=== PATIENT | male | born 1985 | race Caucasian/White ===

== ENCOUNTER 2023-12-28 22:10 | Emergency (ER) | payer MEDICAID, SELFPAY ==
[2023-12-28 22:15] VITALS: BP 121/79; PULSE 91; RESP 20; TEMP 36.7; O2SAT 99; BMI 19.6
--- NOTE | 2023-12-28 22:40 | ED_ITS ---
HPI - Dental/Oral General Chief complaint: Dental/Oral/Mouth Injury/Pain Stated complaint: abscess tooth- R Bottom Time Seen by Provider: 12/28/23 22:19 History of Present Illness HPI Narrative: This 38-year-old male comes in with dental pain in the right lower row. He has very poor dentition and has had some dentures in the upper row and needs to have his lower row of teeth replaced with dentures. He complains of pain in the right lower row where he has fractured teeth. There is no report of fever or purulent drainage. He states that he is getting [place] insurance and connecting with the primary doctor and then plans to get connected with a dentist. Related Data Home Medications ?Medication ?Instructions ?Recorded ?Confirmed paroxetine HCl 10 mg tablet 10 mg PO DAILY 12/28/23 12/28/23 paroxetine HCl 40 mg tablet 40 mg PO DAILY 12/28/23 12/28/23 Allergies Allergy/AdvReac Type Severity Reaction Status Date / Time amoxicillin Allergy Mild Hives Verified 12/28/23 22:18 clindamycin Allergy Mild Hives Verified 12/28/23 22:18 Review of Systems Status of ROS: Reports: 10 or more systems reviewed and unremarkable except as noted in History and below Narrative: Constitutional: No fevers, no weight gain or loss. Eyes: No discharge. No vision changes. HENT: No congestion, no sore throat, no ear pain. Severe dental pain as described above. Cardiovascular: No chest pain, no palpitations. Respiratory: No shortness of breath, no wheezes, no cough. Gastrointestinal: No abdominal pain, no vomiting, no diarrhea. Genitourinary: No dysuria, no hematuria. Musculoskeletal: Normal range of motion. Skin: No rashes, no pruritis. Neurological: No dizziness, weakness, sensory change, speech change. Endo/Heme/Allergies: No bruising or bleeding. No polydipsia. Pysch: no suicidality, no anxiety, no insomnia. All other systems reviewed and are negative. [facility] Medical History (Updated 12/28/23 @ 22:48 by Cosmo Orantes MD) Anxiety ?F41.9 - Anxiety disorder, unspecified (ICD-10) Social History Smoking Status: Current every day smoker What tobacco products do you use: ciga rettes Second hand tobacco smoke exposure: Yes How often do you have a drink containing alcohol: never AUDIT-C Alcohol total score: 0 Non-prescribed substance use: marijuana (any form) Exam Narrative: Exam Narrative: Constitutional: Well-developed, well-nourished, no acute distress. HEENT: Normocephalic, atraumatic. Very poor dentition. Some fractured teeth that are stubs and black appearing in the right lower row where he has distinct tenderness. No sign of external abscess or swelling. Neck: Normal range of motion. Nontender. Supple. Heart: Regular. No murmurs. Normal rate. Intact distal pulses. Lungs: Clear to auscultation. No chest discomfort. No wheezes, rhonchi, or rales. Abdomen: Normal bowel sounds. Nontender. No rebound tenderness. Genitalia: Deferred. Back: No midline tenderness. Normal range of motion. Extremities: Normal range of motion. No injury. Skin: Intact. No rash. Warm. No erythema or pallor. Neurologic: No altered sensation. No weakness. Alert and oriented. Psychiatric: No suicidality. No anxiety or depression. No insomnia. Nursing notes and vitals signs are reviewed. Const: Vital Signs, click to edit/add: Vital Signs - 24 hr 12/28/23 22:15 Temperature 98.0 F Pulse Rate [Right Pulse Oximeter] 91 Respiratory Rate 20 Blood Pressure [Ri ght Upper Arm] 121/79 Pulse Oximetry 99 Oxygen Delivery Me thod Room Air Course Vital Signs Vital signs: Initial Vital Signs Temperature 98.0 F 12/28/23 22:15 Temperature Source Temporal Artery Scan 12/28/23 22:15 Pulse Rate 91 12/28/23 22:15 Respiratory Rate 20 12/28/23 22:15 Blood Pressure 121/79 12/28/23 22:15 Blood Pressure Mean 93 12/28/23 22:15 Blood Pressure Position Sitting 12/28/23 22:15 Pulse Oximetry 99 12/28/23 22:15 Oxygen Delivery Method Room Air 12/28/23 22:15 Vital Signs Temperature 98.0 F 12/28/23 22:15 Pulse Rate 91 12/28/23 22:15 Respiratory Rate 20 12/28/23 22:15 Blood Pressure 121/79 12/28/23 22:15 Pulse Oximetry 99 12/28/23 22:15 Oxygen Delivery Method Room Air 12/28/23 22:15 Temperature 98.0 F 12/28/23 22:15 Pulse Rate 91 12/28/23 22:15 Respiratory Rate 20 12/28/23 22:15 Blood Pressure 121/79 12/28/23 22:15 Pulse Oximetry 99 12/28/23 22:15 Oxygen Delivery Method Room Air 12/28/23 22:15 MDM - Dental/Oral MDM Narrative Medical decision making narrative: This patient has very poor dentition with chronic dental pain that is worsened recently. He is very appreciative for what ever help I can provide here and understands that more definitive care will need to happen in a dentist office. The patient is agreeable to receive an an injection to block the inferior alveolar nerve. I did inject with bupivacaine 0.25% and this caused great re lief to his pain rather quickly. Prescription for Toradol and Keflex is provided from the [employer] machine. Discharge Plan Discharge Clinical Impression: Toothache, Fracture of tooth Patient Disposition: Home, Self-Care Condition: Stable Additional Instructions: take medication as prescribed. Follow-up with dentist as soon as possible. Prescriptions: No Action paroxetine HCl 40 mg tablet 40 mg PO DAILY Rx Instructions: total dose of 50mg daily paroxetine HCl 10 mg tablet 10 mg PO DAILY Stand Alone Forms: [employer] Info Instructions
== END 2023-12-28 23:02 | disposition home or self-care (01) ==
LOC: ED 22:57
PROVIDERS: Emergency Provider Emergency Medicine Emergency Medical Services
DX: S02.5XXA Fracture of tooth (traumatic), initial encounter for closed fracture (principal)
CPT/HCPCS: 64400; 99283; 99284